=== PATIENT | female | born 1955 | race Caucasian/White ===

== ENCOUNTER 2024-03-06 15:22 | Emergency (ER) | payer OTHER ==
[2024-03-06 15:45] VITALS: BMI 25.4
[2024-03-06] MEDS ORDERED: ACETAMINOPHEN 500 MG TABLET (FP) ONE (17:16)
[2024-03-06 17:23] LABS: EOS % 5.1 % (0-4.5); HEMOGLOBIN 11.6 GM/dL (10.7-15.3); LYMPH % 25.1 % (8-40); MCHC 34.2 g/dl (32.0-36.0); MEAN CELL VOLUME 96.4 fl (80-96); MEAN PLT VOLUME 8.6 fl (7.5-11.1); MONO % 8.6 % (3.8-10.2); NEUT % 60.2 % (42.8-82.8); PLATELET COUNT 189 10^3/uL (134-434); RBC 3.52 M/mm3 (3.60-5.2); RDW 13.2 % (11.6-15.6); WHITE BLOOD COUNT 5.7 K/mm3 (4.0-10.0)
[2024-03-06 17:25] LABS: VENOUS BASE EXCESS -4.9 mmol/L (-2-2); VENOUS O2 SATURATION 81.6 % (70-80); VENOUS PCO2 42.2 mmHg (38-52); VENOUS PH 7.315 (7.310-7.410)
[2024-03-06] MEDS: ACETAMINOPHEN 500 MG TABLET (FP) PO ONE (17:30)
[2024-03-06 17:42] LABS: POTASSIUM 4.8 mmol/L (3.5-5.1)
[2024-03-06 17:45] LABS: BLOOD UREA NITROGEN 55.1 mg/dL (7-18); CALCIUM 9.3 mg/dL (8.5-10.1); MAGNESIUM 2.7 mg/dL (1.8-2.4)
[2024-03-06 17:46] LABS: ALBUMIN 3.6 g/dl (3.4-5.0)
[2024-03-06 17:49] LABS: CREATININE 4.8 mg/dL (0.55-1.3)
[2024-03-06 17:50] LABS: BILIRUBIN,TOTAL 0.4 mg/dL (0.2-1); TOT PROT 7.1 g/dl (6.4-8.2)
[2024-03-07 00:28] VITALS: BP 191/83; PULSE 67; RESP 16; TEMP 97.1
== END 2024-03-07 08:08 | disposition home or self-care (01) ==
LOC: JER 15:22
DX: E11.65 Type 2 diabetes mellitus with hyperglycemia (principal); I10 Essential (primary) hypertension
CPT/HCPCS: 36415; 80053; 82010; 82803; 82962; 83735; 85025; 93005; 93010; 99284-25

== ENCOUNTER 2024-03-31 00:25 | Emergency (ER) | payer OTHER ==
[2024-03-31 00:54] VITALS: BMI 25.6
[2024-03-31] MEDS ORDERED: KETOROLAC TROMETHAMINE 15 MG/ML VIAL IVPUSH ONE (01:20)
[2024-03-31] MEDS ORDERED: ACETAMINOPHEN INJECTION 100 ML IVPB ONE (01:35)
[2024-03-31] MEDS: ACETAMINOPHEN 1000 MG/100 ML BAG IVPB ONE (01:45)
[2024-03-31 01:56] LABS: BASO % 1.3 % (0-2.0); EOS % 2.2 % (0-4.5); HEMATOCRIT 29.8 % (32.4-45.2); HEMOGLOBIN 9.8 GM/dL (10.7-15.3); MCH 31.5 pg (25.7-33.7); MCHC 33.1 g/dl (32.0-36.0); MEAN CELL VOLUME 95.4 fl (80-96); MEAN PLT VOLUME 7.5 fl (7.5-11.1); MONO % 12.6 % (3.8-10.2); NEUT % 50.9 % (42.8-82.8); PLATELET COUNT 283 10^3/uL (134-434); RBC 3.12 M/mm3 (3.60-5.2); RDW 14.7 % (11.6-15.6); WHITE BLOOD COUNT 5.1 K/mm3 (4.0-10.0)
[2024-03-31 02:03] LABS: INR 0.99 (0.83-1.09); PROTHROMBIN TIME (PATIENT) 11.4 SEC (9.7-13.0)
[2024-03-31 02:06] LABS: ACTIVATED PTT 31.2 SECONDS (25.2-36.5)
[2024-03-31 02:09] LABS: POTASSIUM 3.7 mmol/L (3.5-5.1)
[2024-03-31 02:11] LABS: CALCIUM 9.7 mg/dL (8.5-10.1)
[2024-03-31 02:12] LABS: ALBUMIN 4.2 g/dl (3.4-5.0); BLOOD UREA NITROGEN 23.7 mg/dL (7-18); MAGNESIUM 2.2 mg/dL (1.8-2.4)
[2024-03-31 02:15] LABS: CREATININE 3.5 mg/dL (0.55-1.3)
[2024-03-31 02:16] LABS: BILIRUBIN,TOTAL 0.7 mg/dL (0.2-1)
[2024-03-31] MEDS ORDERED: MORPHINE SULFATE 2 MG/ML SYRINGE ONE ×2 (03:00→03:49)
[2024-03-31] MEDS: morphine CARPU-JECT 4 MG/1 ML DISP.SYRIN IVPUSH ONE (03:05)
[2024-03-31] MEDS ORDERED: LIDOCAINE 5% TOPICAL PATCH ONE (03:49)
[2024-03-31] MEDS: morphine CARPU-JECT 2 MG/1 ML DISP.SYRIN IVPUSH ONE (03:56)
[2024-03-31] MEDS: LIDOCAINE 5% TOPICAL PATCH TP ONE (03:56)
[2024-03-31 08:48] VITALS: BP 153/66; PULSE 76; RESP 20; TEMP 99
[2024-03-31] MEDS ORDERED: LIDOCAINE PATCH REMOVAL MC SCH (22:00)
== END 2024-03-31 09:00 | disposition home or self-care (01) ==
LOC: JER 00:25
PROC: 3E033NZ Introduction of Analgesics, Hypnotics, Sedatives into Peripheral Vein, Percutaneous Approach (ICD-10-PCS; principal; 2024-03-31)
PROC: 3E033NZ Introduction of Analgesics, Hypnotics, Sedatives into Peripheral Vein, Percutaneous Approach (ICD-10-PCS; 2024-03-31)
PROC: 3E033NZ Introduction of Analgesics, Hypnotics, Sedatives into Peripheral Vein, Percutaneous Approach (ICD-10-PCS; 2024-03-31)
DX: M54.50 Low back pain, unspecified (principal); G89.29 Other chronic pain; Z20.822 Contact with and (suspected) exposure to COVID-19
CPT/HCPCS: 0241U-QW; 36415; 71045-TC-FY; 80053; 83735; 85025; 85610; 85730; 86850; 86900; 86901; 93005; 93010; 99285-25; J0131

== ENCOUNTER 2025-02-21 10:47 | Emergency (ER) | payer OTHER ==
[2025-02-21] MEDS ORDERED: ALBUTEROL SO4 2.5/IPRATROPIUM 0.5 INH SOL 3 ML VIAL.NEB. NEB ONE (11:18)
[2025-02-21] MEDS ORDERED: ALBUTEROL SO4 0.083% IH SOL 2.5 MG/3 ML VIAL.NEB. NEB ONE (11:18)
[2025-02-21 11:49] LABS: VENOUS BASE EXCESS -7.5 mmol/L (-2-2); VENOUS O2 SATURATION 93.2 % (70-80); VENOUS PCO2 54.8 mmHg (38-52)
[2025-02-21 11:56] LABS: INR 0.99 (0.83-1.09); PROTHROMBIN TIME (PATIENT) 10.9 SEC (9.7-13.0)
[2025-02-21 11:59] LABS: VENOUS PH 7.197 (7.310-7.410)
[2025-02-21 12:09] LABS: ABSOLUTE IMMATURE GRANULOCYTES 0.08 x10^3/uL (0.0-0.031); BASOPHILS # 0.03 x10^3/uL (0.01-0.08); EOSINOPHIL % 0.8 % (0.7-5.8); EOSINOPHILS # 0.07 x10^3/uL (0.04-0.36); HEMATOCRIT 34.2 % (34.1-44.9); HEMOGLOBIN 10.7 g/dL (11.2-15.7); MCHC 31.3 g/dl (32.2-35.5); MEAN CELL VOLUME 97.7 fl (79.4-94.8); MEAN PLT VOLUME 10.6 fl (9.4-12.3); MONOCYTE # 0.06 x10^3/uL (0.24-0.86); MONOCYTE % 0.7 % (4.7-12.5); PLATELET COUNT 226 x10^3/uL (182-369); RDW 14.4 % (12.4-16.4)
[2025-02-21 12:12] LABS: LACTIC ACID 10.7 mmol/L (0.4-2.0)
[2025-02-21] MEDS ORDERED: PIPERACILLIN/TAZOB 2.25 GM 2.25 GM/50 ML BAG IVPB ONE (12:12)
[2025-02-21 12:13] LABS: CHLORIDE 103 mmol/L (98-107); POTASSIUM 5.1 mmol/L (3.5-5.1); SODIUM 141 mmol/L (136-145)
[2025-02-21] MEDS ORDERED: VANCOMYCIN 1 GM PREMIX (F) 1 GM/200 ML BAG ONE (12:13)
[2025-02-21 12:15] LABS: CALCIUM 12.3 mg/dL (8.5-10.1)
[2025-02-21 12:16] LABS: ALBUMIN 2.8 g/dl (3.4-5.0); ANION GAP 16 mmol/L (4-13); CO2 23 mmol/L (21-32); GLUCOSE,RANDOM 334 mg/dL (74-106)
[2025-02-21 12:19] LABS: SGOT/AST 115 U/L (15-37); SGPT/ALT 78 U/L (13-61)
[2025-02-21 12:21] LABS: BILIRUBIN,TOTAL 0.3 mg/dL (0.2-1); TOT PROT 5.8 g/dl (6.4-8.2)
[2025-02-21 12:22] LABS: ALK PHOS 129 U/L (45-117); CREATININE 3.9 mg/dL (0.55-1.3)
[2025-02-21] MEDS: PIPERACILLIN/TAZOB 2.25 GM 2.25 GM in DEXTROSE 5%-WATER - 50 ML IVPB ONE (12:27)
[2025-02-21] MEDS: VANCOMYCIN 1,000 MG in DEXTROSE 5%-WATER - 250 ML IVPB ONE (12:30)
[2025-02-21] MEDS ORDERED: LORazepam 2 MG/ML SDV VIAL ONE (13:25)
[2025-02-21] MEDS: LORazepam 2 MG/ML SDV VIAL IVPUSH ONE (13:30)
[2025-02-21] MEDS: PROPOFOL 1,000,000 MCG/100 ML VIAL IVPB SCH (13:35)
[2025-02-21 13:36] VITALS: BMI 26.2
[2025-02-21] MEDS ORDERED: PROPOFOL 1,000,000 MCG/100 ML VIAL ONE (13:51)
[2025-02-21] MEDS: LABETALOL HCL 20 MG/4 ML VIAL IVPUSH ONE (14:10)
[2025-02-21] MEDS ORDERED: LABETALOL HCL 20 MG/4 ML VIAL ONE (14:17)
[2025-02-21] MEDS ORDERED: SODIUM CHLORIDE 250 ML IV PRN (14:52)
[2025-02-21 15:16] VITALS: TEMP 97.8
[2025-02-21 15:25] VITALS: RESP 15
[2025-02-21 15:54] VITALS: BP 134/63; PULSE 72
== END 2025-02-21 14:45 | disposition short-term general hospital (02) ==
LOC: JER 10:47
PROC: 5A1221J Performance of Cardiac Output, Continuous, Automated (ICD-10-PCS; principal; 2025-02-21)
PROC: 06HM33Z Insertion of Infusion Device into Right Femoral Vein, Percutaneous Approach (ICD-10-PCS; 2025-02-21)
PROC: 3E03329 Introduction of Other Anti-infective into Peripheral Vein, Percutaneous Approach (ICD-10-PCS; 2025-02-21)
PROC: 3E03329 Introduction of Other Anti-infective into Peripheral Vein, Percutaneous Approach (ICD-10-PCS; 2025-02-21)
PROC: 3E033GC Introduction of Other Therapeutic Substance into Peripheral Vein, Percutaneous Approach (ICD-10-PCS; 2025-02-21)
PROC: 3E033GC Introduction of Other Therapeutic Substance into Peripheral Vein, Percutaneous Approach (ICD-10-PCS; 2025-02-21)
DX: I46.9 Cardiac arrest, cause unspecified (principal); I10 Essential (primary) hypertension; R00.0 Tachycardia, unspecified
CPT/HCPCS: 0241U-QW; 36415; 71045-TC-FY; 80053; 82803; 83605; 84484; 85025; 85610; 85730; 86850; 86900; 86901; 87040; 93005; 93010; 93306-TC; 99291